=== PATIENT | female | born 1950 | race Caucasian/White ===

== ENCOUNTER 2017-09-12 15:47 | Emergency (ER) | payer MEDICARE ==
[~2017-09-12] VITALS: Ht 172.7 cm; Wt 92.0 kg
[~2017-09-12 15:47] MED LIST: AMLO5TAB96 PO; HYDR12.56 PO; XANA0.5T PO
[2017-09-12 15:57] VITALS: PULSE 109; RESP 18; TEMP 97.9; O2SAT 99
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
[2017-09-12] MEDS ORDERED: SODIUM CHLORIDE 0.9% FLUSH 10 ML FLUSH IVF PRN (17:30)
[2017-09-12] MEDS ORDERED: ACETAMINOPHEN/HYDROcodone 325 MG/5 MG TAB PO ONE (17:30)
--- NOTE | 2017-09-12 18:23 | RADRPT ---
EXAM DATE: 09/12/2017 6:15 PM EDT AGE/SEX: 67 years / Female INDICATIONS: Back pain; fall today. CLINICAL DATA: This is the patient's initial encounter. Patient reports that signs and symptoms have been present for 1 day and indicates a pain score of 5/10. MEDICAL/SURGICAL HISTORY: Hypertension. Hysterectomy. Cardiac cath. COMPARISON: No prior [facility] exams available for comparison. FINDINGS: 3 views of the thoracic spine demonstrate no fracture or compression deformity. The vertebral bodies are under mineralized and the upper thoracic vertebral bodies are not well visualized. Endplate osteo phytes are present at multiple levels and there is accentuated thoracic kyphosis. The visualized surr ounding structures demonstrate no acute abnormality. CONCLUSION: Under mineralized bones with degenerative changes throughout the thoracic spine. However, no acute fi nding is identified. Electronically signed by: Jr Rodríguez MD 09/12/2017 6:22 PM EDT
--- NOTE | 2017-09-12 18:25 | RADRPT ---
EXAM DATE: 09/12/2017 6:14 PM EDT AGE/SEX: 67 years / Female INDICATIONS: Lower back pain; fall. CLINICAL DATA: This is the patient's initial encounter. Patient reports that signs and symptoms have been present for 1 day and indicates a pain score of 6/10. MEDICAL/SURGICAL HISTORY: Hypertension. Hysterectomy. COMPARISON: No prior [facility] exams available for comparison. FINDINGS: 3 views of the lumbar spine demonstrate 5 nonrib-bearing lumbar vertebral bodies. No fracture or comp ression deformity is present. Small endplate osteophytes are present anteriorly at multiple levels. T here is mild decreased disc height at L3-L4. Visualized pelvic bones and surrounding structures demon strate no acute finding. CONCLUSION: No acute lumbar spine abnormality is identified. Mild degenerative changes are present, as above. Electronically signed by: Jr Rodríguez MD 09/12/2017 6:24 PM EDT
[2017-09-12] MEDS ORDERED: HYDR12.57 PO (18:28)
[2017-09-12] MEDS ORDERED: AMLO5TAB2 PO (18:28)
[2017-09-12] MEDS ORDERED: ALPR.5 PO (18:28)
--- NOTE | 2017-09-12 18:35 | RADRPT ---
EXAM DATE: 09/12/2017 6:14 PM EDT AGE/SEX: 67 years / Female INDICATIONS: Right elbow pain; fall today. CLINICAL DATA: This is the patient's initial encounter. Patient reports that signs and symptoms have been present for 1 day and indicates a pain score of 5/10. MEDICAL/SURGICAL HISTORY: None. None. COMPARISON: None. FINDINGS: 4 images of the right elbow reveal diffuse osteopenia. There is an orthopedic plate with numerous anc horing screws involving the proximal ulna. An acute fracture is seen involving the radial head. This extends through the articular surface. No angulation or distraction. Proximal ulna and distal humerus are intact. CONCLUSION: Acute nondisplaced radial head fracture. Electronically signed by: Nate Bianchi MD 09/12/2017 6:34 PM EDT
--- NOTE | 2017-09-12 18:36 | RADRPT ---
EXAM DATE: 09/12/2017 6:14 PM EDT AGE/SEX: 67 years / Female INDICATIONS: Left wrist pain; fall today. CLINICAL DATA: This is the patient's initial encounter. Patient reports that signs and symptoms have been present for 1 day and indicates a pain score of 5/10. MEDICAL/SURGICAL HISTORY: None. None. COMPARISON: None. FINDINGS: 3 views of the left wrist reveal osteopenia. There is an orthopedic plate involving the distal radius with multiple anchoring screws. No acute fracture or dislocation. Soft tissues are unremarkable. Car pus is intact. Joint spaces are preserved. CONCLUSION: Osteopenia and prior trauma. No acute abnormality. Electronically signed by: Nate Bianchi MD 09/12/2017 6:35 PM EDT
--- NOTE | 2017-09-12 18:40 | RADRPT ---
EXAM DATE: 09/12/2017 6:27 PM EDT AGE/SEX: 67 years / Female INDICATIONS: Fall, hit head. CLINICAL DATA: This is the patient's initial encounter. Patient reports that signs and symptoms have been present for 1 day and indicates a pain score of 10/10. MEDICAL/SURGICAL HISTORY: Hypertension. Hysterectomy. RADIATION DOSE: 39.39 CTDI (mGy) COMPARISON: No prior [facility] exams available for comparison. TECHNIQUE: CT of the head without contrast. Using automated exposure control and adjustment of the mA and/or kV according to patient size, radiation dose was kept as low as reasonably achievable to ob tain optimal diagnostic quality images. FINDINGS: Cerebrum: The ventricles are normal. No midline shift, mass lesion, hemorrhage or acute infarction. No extraaxial fluid collections are seen. Posterior Fossa: The cerebellum and brainstem demonstrate no acute abnormality. The 4th ventricle is midline. The cerebellopontine angle is within normal limits. Extracranial: The visualized sinuses are clear. Skull: The calvaria is intact. No skull fracture. CONCLUSION: No acute abnormality is identified. Electronically signed by: Jr Rodríguez MD 09/12/2017 6:38 PM EDT
--- NOTE | 2017-09-12 18:41 | RADRPT ---
EXAM DATE: 09/12/2017 6:28 PM EDT AGE/SEX: 67 years / Female INDICATIONS: Fall, hit head, neck pain. CLINICAL DATA: This is the patient's initial encounter. Patient reports that signs and symptoms have been present for 1 day and indicates a pain score of 10/10. MEDICAL/SURGICAL HISTORY: Hypertension. Hysterectomy. RADIATION DOSE: 17.38 CTDI (mGy) COMPARISON: None. TECHNIQUE: Contiguous axial images were obtained using helical multirow detector technique. The vol umetric data was post-processed with multiplanar reconstruction in oblique axial, sagittal, and coron al planes. Using automated exposure control and adjustment of the mA and/or kV according to patient s ize, radiation dose was kept as low as reasonably achievable to obtain optimal diagnostic quality tarik ges. FINDINGS: Vertebrae: Normal vertebral body height. Alignment: Normal. No subluxation. C2-3: Mild central bulge. No abutment of the cord or central canal stenosis. Neural foramina are pat ent bilaterally.. C3-4: The bony spinal canal is normal in size. No evidence of disc bulge or herniation. The neural foramina are bilaterally patent. C4-5: The bony spinal canal is normal in size. No evidence of disc bulge or herniation. The neural foramina are bilaterally patent. C5-6: A mild broad-based disc bulge slightly eccentric to the left. No abutment of the cord or centr al canal stenosis. Neural foramina are patent bilaterally.. C6-7: The bony spinal canal is normal in size. No evidence of disc bulge or herniation. The neural foramina are bilaterally patent. C7-T1: The bony spinal canal is normal in size. No evidence of disc bulge or herniation. The neura l foramina are bilaterally patent. CONCLUSION: 1. No fracture or dislocation. 2. Degenerative changes without central canal stenosis or neural foraminal narrowing. Electronically signed by: Nate Bianchi MD 09/12/2017 6:40 PM EDT
--- NOTE | 2017-09-12 18:43 | RADRPT ---
EXAM DATE: 09/12/2017 6:14 PM EDT AGE/SEX: 67 years / Female INDICATIONS: Sacrum pain; fall today. CLINICAL DATA: This is the patient's initial encounter. Patient reports that signs and symptoms have been present for 1 day and indicates a pain score of 4/10. MEDICAL/SURGICAL HISTORY: Hypertension. Hysterectomy. Cardiac cath. COMPARISON: No prior [facility] exams available for comparison. FINDINGS: 3 views of the sacrum and coccyx demonstrate no fracture or acute osseous abnormality. Sacroiliac rajesh nts demonstrate no acute finding. Soft tissues demonstrate no acute abnormality. CONCLUSION: No acute abnormality is identified. Electronically signed by: Jr Rodríguez MD 09/12/2017 6:42 PM EDT
[2017-09-12] MEDS ORDERED: NORC5TAB PO (18:45)
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
== END 2017-09-12 20:23 | disposition home or self-care (01) ==
LOC: NEPE 15:47
DX: S52.124A Nondisplaced fracture of head of right radius, initial encounter for closed fracture (principal); S09.90XA Unspecified injury of head, initial encounter; S69.92XA Unspecified injury of left wrist, hand and finger(s), initial encounter; S16.1XXA Strain of muscle, fascia and tendon at neck level, initial encounter; S39.012A Strain of muscle, fascia and tendon of lower back, initial encounter; I10 Essential (primary) hypertension; W19.XXXA Unspecified fall, initial encounter
CPT/HCPCS: 29125; 70450; 72072; 72100; 72125; 72220; 73080; 73110; 99284; L3908